=== PATIENT | female | born 1965 | race Caucasian/White ===

== ENCOUNTER 2021-11-16 17:32 | Inpatient (IN) ==
[2021-11-16] MEDS ORDERED: LORazepam 2 MG/1 ML VIAL IV STA ×2 (17:59→23:13)
[2021-11-16] MEDS ORDERED: SODIUM CHLORIDE 0.9% 1000ML 1,000 ML IV ONE (17:59)
--- NOTE | 2021-11-16 18:06 | Emergency Department Note ---
Impression & Plan Seizure, Hypertension, Encephalopathy acute, Hypertensive emergency ED Provider Note Name: NAVEED GALO Age: 56 Sex: F Arrives Via: Ambulance Informant: Patient (poor historian), , EMS ED Provider: Rm Cunningham MD Chief Complaint: Seizure Impression: As per impressions above Medical Decision Making: Pleasant 56-year-old female who just moved to the area with her from [place]. She has a known history of CAD status post stenting, type 2 diabetes, hypertension and a long history of epilepsy though no significant seizures in several years. She is on Onfi and Lamictal as apparently per her she is allergic to pretty much every other seizure med. She and her have been sitting outside on the front porch for most of the day when she had recurrent seizures this afternoon. She has had at least 3 full tonic-clonic seizures lasting about a minute and well over an hour in between each where she continues to be postictal. She arrives to the ER encephalopathic in a postictal leg. She is redirectable but forgetful and not answering questions appropriately. She does not appear meningitic. She is afebrile though was quite hypertensive and tachycardic. She was given 2 mg IV Ativan as felt this was not an aller gy of hers and she had significant improvement in her mental status. She was given further IV fluids. She continues to have some confusion and is not quite at her baseline as per . She is still quite hypertensive thus after watching effect of Ativan she was given labetalol 10 mg x 2 with improvement in her blood pressure. While her mental status is clearly better I do not feel she is quite at the point where she is safe for discharge with monitoring her further in the hospital is indicated, especially given she has no outpatient follow-up at this time. I discussed the case with the hospitalist who will further evaluate and manage the patient. Prior Medical Record and Triage/Nursing Notes reviewed by Me Additional history obtained from Differentials:Infection, hypoglycemia, electrolyte abnormalities, overdose, toxicologic, cardiac sources, intracerebral event, neurologic, trauma, as well as other pathologies. Vital Signs: reviewed and remarkable for hypertension, tachycardia Interventions: Ativan 2 mg IV, normal saline bolus 1 L IV, labetalol 10 mg IV x2 Labs:Reviewed and remarkable for mild hyperglycemia Imaging:CT of head as per radiology no acute findings EKG:Per My Interpretation: Indication AMS: Sinus tachycardia at 115 bpm with a QTC of 470. Nonspecific interventricular block noted with enlarged P waves. There is no previous EKG for evaluation Cardiac/Tele Monitoring: Cardiac Monitoring: An Order was placed for continuous cardiac monitoring. The monitor shows a rate of 80 with a normal sinus rhythm. Consults:Dr Addy WILL Hospitalist Plan: Disposition:Hospitalization. Condition: Good History of Present Illness:56-year-old female arrives for evaluation of seizures. Patient is altered and the story is from her . Patient with a long history of seizures since the age of 2-1/2 following prolonged febrile seizure. Her notes that she had not had a seizure in the last 6 years due to being on Lamictal and Omvi. Patient and recently moved to the area from [place] about 5 days ago. They were out sitting on her porch in the sun around 1 PM when she had a seizure. Initial seizure was a few minutes followed by a prolonged postictal period which resulted in another seizure at 2 PM. notes this was about 2 minutes and violent tonic- clonic in nature. He notes she continued to be altered until about 4:00 when she had another seizure. Due to persistent altered mental status and not coming back to her called 911. She had no medications prior to arrival. denies any alcohol or drug use. He denies any recent head injuries I did have a fall on her left knee a few days ago without any major injury. Not feel she missed any doses of her medications. She has not been complaining of a headache, chest pain, shortness of breath, fevers, chills, eating issues, leg swelling, urinary or bowel symptoms or any other symptoms. ROS: Unable to obtain due to altered mental status Past Medical History:Seizures, [place], hypertension, dyslipidemia, diabetes Past Surgical History:Gallbladder and cardiac stents Family History:No family history of seizures Social History:Lives with , moved from [place], no history of smoking Home Medications:Lamictal, Omvi, statin, blood pressure medicine, metformin Allergies:"Most seizure medications" as per Vitals:Blood Pressure: 216/95, Pulse 115, RR 22, T 37.2C, O2 93% on RA Physical Exam: GENERAL: Patient is encephalopathic/post ictal appearing and in no distress. Dehydrated and dry appearing EYES: No scleral icterus, unremarkable pupils. ENT: Mucous membranes dry, no nasal congestion. NECK: No masses appreciated, nomeningismus, trachea is midline. RESPIRATORY: No dyspnea. Clear to auscultation and equal bilaterally. No wheeze, no rhonchi. CARDIOVASCULAR: Tachy.No murmurs, rubs, gallops appreciated. GASTROINTESTINAL: Abdomen soft, non-tender, no peritonitis.Bowel sounds positive.No masses appreciated. BACK: No midline tenderness, no CVA tenderness EXTREMITIES: Normal motion all extremities, no cyanosis, no edema. NEUROLOGIC: Post ictal appearing, periodically focusing on objects with eyes before roving away, weakly moving all extremities, no focal CN deficits appreciated. SKIN: No rash, no jaundice, no diaphoresis. GCS: 14 ED Course: Times/Reassessments: Patient with improvement in her mental status though not quite back to her normal baseline. Hypertension gradually improving with rounds of labetalol. Critical Care: I have personally spent 35 minutes of critical care time in the direct ma nagement of this patient. Hypertensive emergency in setting of AMS with 2 rounds IV labetalol to get under control. This was a life/limb threatening event. This 35 minutes is in excess of all separately billable procedures. Rm Cunningham MD Past Med/Surg History Medical History (Updated 11/17/21 @ 17:04 by Rm Cunningham MD) CAD (coronary artery disease) s/p OK in 1998 with stent to LAD Diabetes Hypertension Seizure Surgical History (Updated 11/16/21 @ 22:53 by Lexi Daly DO) History of cholecystectomy Family History (Updated 11/16/21 @ 22:53 by Lexi Daly DO) Other Atrial fibrillation Social History (Updated 11/16/21 @ 22:54 by Lexi Daly DO) Smoking Status: Never smoker Hx Alcohol Use: No Hx Substance Use: No Preferred Language: British Communication Ability: Effective Telegraph Service Clerk Required: No Beliefs That Will Affect Care: None marital status: Current Living Situation: Spouse current occupational status: retired Feels Safe at Home: Yes Safety Concerns: Feels Safe At This Time Assistive Devices: None Allergies Allergies Allergy/AdvReac Type Severity Reaction Status Date / Time ANTISEIZURE MEDICATIONS AdvReac Severe CAUSES Uncoded 11/16/21 19:25 SEIZURES Home Meds Home Medications Medication Instructions Recorded Confirmed Unknown Low Dose Arb 1 tab PO DAILY 11/16/21 11/16/21 Unknown Statin 1 tab PO HS 11/16/21 11/16/21 ascorbic acid (vitamin C) 500 mg 500 mg PO DAILY 11/16/21 11/16/21 tablet (Vitamin C) calcium carbonate 600 mg calcium 600 mg PO DAILY 11/16/21 11/16/21 (1,500 mg) tablet (Calcium) cholecalciferol (vitamin D3) 25 25 mcg PO DAILY 11/16/21 11/16/21 mcg (1,000 unit) capsule (Vitamin D3) clobazam 10 mg tablet (Onfi) 10 mg PO HS 11/16/21 11/16/21 lamotrigine 200 mg tablet 300 mg PO BID 11/16/21 11/16/21 (Lamictal) lorazepam 1 mg tablet (Ativan) 1 mg PO DIRECTED PRN 11/16/21 11/16/21 magnesium oxide 400 mg PO DAILY 11/16/21 11/16/21 metformin 1,000 mg tablet 1,000 mg PO BID 11/16/21 11/16/21 metoprolol succinate 50 mg 50 mg PO DAILY 11/16/21 11/16/21 tablet,extended release 24 hr montelukast 10 mg tablet 10 mg PO HS 11/16/21 11/16/21 (Singulair) pyridoxine (vitamin B6) 100 mg 100 mg PO DAILY 11/16/21 11/16/21 tablet (Vitamin B-6) vitamin B complex 1 tab PO DAILY 11/16/21 11/16/21 Results & Data (ED) Vital Signs Vital Signs - 24 hr 11/16/21 17:48 11/16/21 17:49 11/16/21 17:50 Temperature 37.2 C Temperature Source Axillary Pulse Rate 116 H 116 H 116 H Pulse Rate [Right Finger] 115 H Pulse Rate from SpO2 Sensor 116 H 116 H Pulse Rhythm Regular Pulse Strength Normal Pulse Strength [Right Finger] Normal Respiratory Rate 22 21 26 H Respiratory Effort / Characteristics Non-Labored Spontaneous Respiratory Depth Normal Respiratory Pattern Regular Blood Pressure 216/95 H Blood Pressure [Right Arm] 216/95 H Blood Pressure Mean 135 Blood Pressure Mean [Right Arm] 135 Blood Pressure Position Lying Blood Pressure Position [Right Arm] Lying Pulse Oximetry 93 94 95 Oxygen Delivery Method Room Air Sepsis Recent Fever Within 48 Hours No Sepsis New/Unexplained Change in Mental Status No Sepsis Action Taken by Nursing Physician Notified 11/16/21 18:00 11/16/21 18:10 11/16/21 18:20 Temperature Temperature Source Pulse Rate 116 H 111 H 103 H Pulse Rate [Right Finger] Pulse Rate from SpO2 Sensor 115 H 111 H 103 H Pulse Rhythm Pulse Strength Pulse Strength [Right Finger] Respiratory Rate 24 25 H 15 Respiratory Effort / Characteristics Respiratory Depth Respiratory Pattern Blood Pressure Blood Pressure [Right Arm] Blood Pressure Mean Blood Pressure Mean [Right Arm] Blood Pressure Position Blood Pressure Position [Right Arm] Pulse Oximetry 94 93 94 Oxygen Delivery Method Sepsis Recent Fever Within 48 Hours Sepsis New/Unexplained Change in Mental Status Sepsis Action Taken by Nursing 11/16/21 18:30 11/16/21 18:40 11/16/21 18:58 Temperature Temperature Source Pulse Rate 103 H 100 H 106 H Pulse Rate [Right Finger] Pulse Rate from SpO2 Sensor 103 H 100 H 104 H Pulse Rhythm Pulse Strength Pulse Strength [Right Finger] Respiratory Rate 21 20 22 Respiratory Effort / Characteristics Respiratory Depth Respiratory Pattern Blood Pressure Blood Pressure [Right Arm] Blood Pressure Mean Blood Pressure Mean [Right Arm] Blood Pressure Position Blood Pressure Position [Right Arm] Pulse Oximetry 94 94 96 Oxygen Delivery Method Sepsis Recent Fever Within 48 Hours Sepsis New/Unexplained Change in Mental Status Sepsis Action Taken by Nursing 11/16/21 19:00 11/16/21 19:02 11/16/21 19:10 Temperature Temperature Source Pulse Rate 105 H 106 H 108 H Pulse Rate [Right Finger] Pulse Rate from SpO2 Sensor 105 H 107 H 108 H Pulse Rhythm Pulse Strength Pulse Strength [Right Finger] Respiratory Rate 24 26 H 14 Respiratory Effort / Characteristics Respiratory Depth Respiratory Pattern Blood Pressure 202/101 H Blood Pressure [Right Arm] Blood Pressure Mean 134 Blood Pressure Mean [Right Arm] Blood Pressure Position Blood Pressure Position [Right Arm] Pulse Oximetry 96 97 96 Oxygen Delivery Method Sepsis Recent Fever Within 48 Hours Sepsis New/Unexplained Change in Mental Status Sepsis Action Taken by Nursing 11/16/21 19:12 11/16/21 19:30 11/16/21 20:00 Temperature Temperature Source Pulse Rate 108 H 112 H 96 H Pulse Rate [Right Finger] Pulse Rate from SpO2 Sensor 105 H 112 H 96 H Pulse Rhythm Pulse Strength Pulse Strength [Right Finger] Respiratory Rate 17 17 20 Respiratory Effort / Characteristics Respiratory Depth Respiratory Pattern Blood Pressure 218/106 H Blood Pressure [Right Arm] Blood Pressure Mean 143 Blood Pressure Mean [Right Arm] Blood Pressure Position Blood Pressure Position [Right Arm] Pulse Oximetry 86 L 93 92 Oxygen Delivery Method Sepsis Recent Fever Within 48 Hours Sepsis New/Unexplained Change in Mental Status Sepsis Action Taken by Nursing 11/16/21 20:06 11/16/21 20:30 11/16/21 20:40 Temperature Temperature Source Pulse Rate 98 H 101 H 100 H Pulse Rate [Right Finger] Pulse Rate from SpO2 Sensor 97 H 102 H 100 H Pulse Rhythm Pulse Strength Pulse Strength [Right Finger] Respiratory Rate 21 19 15 Respiratory Effort / Characteristics Respiratory Depth Respiratory Pattern Blood Pressure 133/111 H Blood Pressure [Right Arm] Blood Pressure Mean 118 Blood Pressure Mean [Right Arm] Blood Pressure Position Blood Pressure Position [Right Arm] Pulse Oximetry 91 96 96 Oxygen Delivery Method Sepsis Recent Fever Within 48 Hours Sepsis New/Unexplained Change in Mental Status Sepsis Action Taken by Nursing 11/16/21 20:50 11/16/21 21:00 Temperature Temperature Source Pulse Rate 99 H Pulse Rate [Right Finger] Pulse Rate from SpO2 Sensor 100 H 101 H Pulse Rhythm Pulse Strength Pulse Strength [Right Finger] Respiratory Rate 18 Respiratory Effort / Characteristics Respiratory Depth Respiratory Pattern Blood Pressure Blood Pressure [Right Arm] Blood Pressure Mean Blood Pressure Mean [Right Arm] Blood Pressure Position Blood Pressure Position [Right Arm] Pulse Oximetry 96 94 Oxygen Delivery Method Sepsis Recent Fever Within 48 Hours Sepsis New/Unexplained Change in Mental Status Sepsis Action Taken by Nursing Laboratory Data Result diagrams: 11/17/21 01:50 11/17/21 01:50 Lab Results 11/16/21 11/16/21 11/16/21 Range/Units 17:54 17:54 17:54 WBC 10.74 (4.8-10.8) K/uL RBC 5.09 (4.2-5.4) M/uL Hgb 15.1 (12.0-16.0) g/dL Hct 45.2 (37-47) % MCV 88.8 (80-100) fL MCH 29.7 (25-34) pg MCHC 33.4 (32-36) g/dL RDW Std Deviation 42.8 (36.4-46.3) fL RDW Coeff of [place] 13.1 (11.5-14.5) % Plt Count 273 (130-400) K/uL MPV 9.9 (7.4-10.4) fL Immature Gran % (Auto) 0.6 % Neut % (Auto) 86.3 % Lymph % (Auto) 9.5 % [place] % (Auto) 3.3 % Eos % (Auto) 0.1 % Baso % (Auto) 0.2 % Neut # (Auto) 9.28 H (1.4-6.5) K/uL Lymph # (Auto) 1.02 L (1.2-3.4) K/uL [place] # (Auto) 0.35 (0.11-0.59) K/uL Eos # (Auto) 0.01 (0-0.5) K/uL Baso # (Auto) 0.02 (0-0.2) K/uL Immature Gran # (Auto) 0.06 H (0.00-0.02) K/uL Sodium 137 (136-145) mmol/L Potassium 4.2 (3.5-5.1) mmol/L Chloride 103 (98-107) mmol/L Carbon Dioxide 23 (21-32) mmol/L Anion Gap 11 (3-11) BUN 17 (6-23) mg/dl Creatinine 0.79 (0.6-1.2) mg/dl Est Cr Clr Drug Dosing 95.8 ml/min Est GFR ( Amer) 95.6 ml/min Est GFR (Non-Af Amer) 82.5 ml/min BUN/Creatinine Ratio 21.5 H (10-20) Glucose 281 H (70-99(Fasting)) mg/dl Calcium 9.5 (8.5-10.1) mg/dl Magnesium 1.7 (1.7-2.4) mg/dl Total Bilirubin 0.5 (0.2-1.0) mg/dl Direct Bilirubin 0.1 (0-0.2) mg/dl AST 27 (13-39) U/L ALT 31 (7-52) U/L Alkaline Phosphatase 67 (34-104) U/L Total Creatine Kinase 186 (26-192) U/L Troponin I High Sens 12.3 (0-14) pg/ml Total Protein 7.8 (6.0-8.3) gm/dl Albumin 4.6 (3.4-5.0) gm/dl TSH 2.447 (0.300-4.500) uIu/ml SARS-CoV-2, RNA, NAAT (NEGATIVE) 11/16/21 Range/Units 18:03 WBC (4.8-10.8) K/uL RBC (4.2-5.4) M/uL Hgb (12.0-16.0) g/dL Hct (37-47) % MCV (80-100) fL MCH (25-34) pg MCHC (32-36) g/dL RDW Std Deviation (36.4-46.3) fL RDW Coeff of [place] (11.5-14.5) % Plt Count (130-400) K/uL MPV (7.4-10.4) fL Immature Gran % (Auto) % Neut % (Auto) % Lymph % (Auto) % [place] % (Auto) % Eos % (Auto) % Baso % (Auto) % Neut # (Auto) (1.4-6.5) K/uL Lymph # (Auto) (1.2-3.4) K/uL [place] # (Auto) (0.11-0.59) K/uL Eos # (Auto) (0-0.5) K/uL Baso # (Auto) (0-0.2) K/uL Immature Gran # (Auto) (0.00-0.02) K/uL Sodium (136-145) mmol/L Potassium (3.5-5.1) mmol/L Chloride (98-107) mmol/L Carbon Dioxide (21-32) mmol/L Anion Gap (3-11) BUN (6-23) mg/dl Creatinine (0.6-1.2) mg/dl Est Cr Clr Drug Dosing ml/min Est GFR ( Amer) ml/min Est GFR (Non-Af Amer) ml/min BUN/Creatinine Ratio (10-20) Glucose (70-99(Fasting)) mg/dl Calcium (8.5-10.1) mg/dl Magnesium (1.7-2.4) mg/dl Total Bilirubin (0.2-1.0) mg/dl Direct Bilirubin (0-0.2) mg/dl AST (13-39) U/L ALT (7-52) U/L Alkaline Phosphatase (34-104) U/L Total Creatine Kinase (26-192) U/L Troponin I High Sens (0-14) pg/ml Total Protein (6.0-8.3) gm/dl Albumin (3.4-5.0) gm/dl TSH (0.300-4.500) uIu/ml SARS-CoV-2, RNA, NAAT NEGATIVE (NEGATIVE) Administered Medications Insulin Aspart (Insulin Aspart Per Unit) 0 units SC Q6 EDUARDO Stop: 12/17/21 00:06 Last Admin: 11/17/21 12:21 Dose: 2 units Documented by: [id number] Cosigned by: [id number] Admin: 11/17/21 06:04 Dose: 3 units Documented by: [id number] Cosigned by: [id number] Admin: 11/17/21 01:45 Dose: 3 units Documented by: [id number] Cosigned by: [id number] Insulin Glargine (Insulin Glargine Solostar 100 Units/Ml 3 Ml Pen) 7 units SC BID [facility] Stop: 12/17/21 00:06 Last Admin: 11/17/21 08:58 Dose: 7 units Documented by: [id number] Cosigned by: [id number] Admin: 11/17/21 01:37 Dose: 7 units Documented by: [id number] Cosigned by: [id number] Lamotrigine (Lamotrigine 100 Mg Tab) 300 mg PO BID [facility] Stop: 12/17/21 08:59 Last Admin: 11/17/21 08:28 Dose: 300 mg Documented by: [id number] Metoprolol Succinate (Metoprolol Succ 50mg Ext Rel Tab) 50 mg PO DAILY EDUARDO Stop: 12/17/21 08:59 Last Admin: 11/17/21 08:28 Dose: 50 mg Documented by: [id number] Miscellaneous (Onfi~Order Awaiting Action) 1 ea N/A QS [facility] Stop: 12/17/21 00:29 Last Admin: 11/17/21 09:01 Dose: Not Given Documented by: [id number] Admin: 11/17/21 03:09 Dose: Not Given Documented by: [id number] Montelukast Sodium (Montelukast Sodium 10 Mg Tablet) 10 mg PO HS [facility] Stop: 12/17/21 00:06 Last Admin: 11/17/21 01:58 Dose: 10 mg Documented by: [id number] Discontinued Medications Sodium Chloride (Nss 1000ml) 1,000 mls @ 999 mls/hr IV .Q1H1M ONE Stop: 11/16/21 18:59 Last Infusion: 11/16/21 19:15 Dose: 0 mls/hr Documented by: [id number] Admin: 11/16/21 18:06 Dose: 999 mls/hr Documented by: [id number] Lactated Ringer's (Lr) 1,000 mls @ 125 mls/hr IV .Q8H EDUARDO Stop: 11/17/21 08:06 Last Infusion: 11/17/21 09:46 Dose: 0 mls/hr Documented by: [id number] Admin: 11/17/21 01:58 Dose: 125 mls/hr Documented by: [id number] Labetalol HCl (Labetalol Hcl Iv 5 Mg/Ml 20ml) 10 mg IV NOW STA Stop: 11/16/21 19:15 Last Admin: 11/16/21 19:38 Dose: 10 mg Documented by: [id number] Cosigned by: [id number] Labetalol HCl (Labetalol Hcl Iv 5 Mg/Ml 20ml) 10 mg IV NOW STA Stop: 11/16/21 20:13 Last Admin: 11/17/21 02:11 Dose: Not Given Documented by: [id number] Lamotrigine (Lamotrigine 100 Mg Tab) 300 mg PO NOW STA Stop: 11/16/21 22:51 Last Admin: 11/16/21 23:26 Dose: 300 mg Documented by: [id number] Lorazepam (Lorazepam 2 Mg/1 Ml Vial) 2 mg IV NOW STA; Protocol Stop: 11/16/21 18:00 Last Admin: 11/16/21 18:06 Dose: 2 mg Documented by: [id number] Lorazepam (Lorazepam 2 Mg/1 Ml Vial) 1 mg IV NOW STA; Protocol Stop: 11/16/21 23:14 Last Admin: 11/16/21 23:27 Dose: 1 mg Documented by: [id number] Discharge Plan Visit Data Chief Complaint: Seizure ED Provider: Rm Cunningham Discharge Problem: Seizure, Hypertension, Encephalopathy acute, Hypertensive emergency
[2021-11-16 18:12] LABS: Basophils # (auto) 0.02 K/uL (0-0.2); Basophils % (auto) 0.2 %; Eosinophils # (auto) 0.01 K/uL (0-0.5); Eosinophils % (auto) 0.1 %; Hematocrit (blood only) 45.2 % (37-47); Hemoglobin 15.1 g/dL (12.0-16.0); Immature Granulocytes # (auto) 0.06 K/uL (0.00-0.02); Immature Granulocytes % (auto) 0.6 %; Lymphocytes # (auto) 1.02 K/uL (1.2-3.4); Lymphocytes % (auto) 9.5 %; Mean Corpuscular Hemoglobin 29.7 pg (25-34); Mean Corpuscular Hgb Conc 33.4 g/dL (32-36); Mean Corpuscular Volume 88.8 fL (80-100); Mean Platelet Volume 9.9 fL (7.4-10.4); Monocytes # (auto) 0.35 K/uL (0.11-0.59); Monocytes % (auto) 3.3 %; Neutrophils # (auto) 9.28 K/uL (1.4-6.5); Neutrophils % (auto) 86.3 %; Platelet Count 273 K/uL (130-400); RDW Coefficient of Variation 13.1 % (11.5-14.5); RDW Standard Deviation 42.8 fL (36.4-46.3); Red Blood Count 5.09 M/uL (4.2-5.4); White Blood Count 10.74 K/uL (4.8-10.8)
--- NOTE | 2021-11-16 18:28 | XRay Report ---
XR chest 1V portable CLINICAL HISTORY: Altered mental status, persistent seizure COMPARISON STUDY: No previous studies for comparison. FINDINGS: Lung volumes are diminished. No pneumothorax or pleural effusion is noted. There is no cons olidation. No evidence for pulmonary edema. Prominence of the vasculature is likely due to a hypovent ilatory study. Cardiac size is within normal limits. IMPRESSION: No acute cardiopulmonary findings. Low lung volumes, likely reflecting a hypoventilatory study. ACT 112: Negative or not required by law. Electronically signed by: Roman Hunt M.D. 11/16/2021 6:27 PM
[2021-11-16 18:46] LABS: Albumin Level 4.6 gm/dl (3.4-5.0); BUN Creatinine Ratio 21.5 (10-20); Bilirubin Direct 0.1 mg/dl (0-0.2); Bilirubin,Total 0.5 mg/dl (0.2-1.0); Calcium 9.5 mg/dl (8.5-10.1); Creatinine Clr Calc Pharmacy 95.8 ml/min; Est GFR (African American) 95.6 ml/min; Est GFR (Non-African American) 82.5 ml/min; Magnesium 1.7 mg/dl (1.7-2.4); Potassium 4.2 mmol/L (3.5-5.1); Total Protein 7.8 gm/dl (6.0-8.3)
[2021-11-16 18:48] LABS: Troponin I High Sensitivity 12.3 pg/ml (0-14)
--- NOTE | 2021-11-16 19:05 | CT Scan Report ---
CT OF THE HEAD WITHOUT CONTRAST CLINICAL HISTORY: seizure, ams persistent COMPARISON STUDY: No previous studies for comparison. CT DOSE: 884.08 mGy.cm TECHNIQUE: Helical axial images of the head were obtained without IV contrast. Automated exposure con trol was utilized for the study. A dose lowering technique was utilized adhering to the principles o f ALARA. FINDINGS: No acute intracranial hemorrhage, midline shift or mass effect is present. Ventricular syst em is unremarkable. Basal cisterns are patent. Incidental note is made of a probable daryn cisterna ma gna. There are no findings to suggest acute dural sinus thrombosis or acute territorial infarct. No a cute calvarial fracture is present. There are postoperative findings within the sinuses. Small amount of secretions within the left sphenoid sinus are present. This mild mucosal thickening of the ethmoi d and left maxillary sinuses. Mastoid air cells are clear. IMPRESSION: No acute intracranial findings. ACT 112: Negative or not required by law. Electronically signed by: Roman Hunt M.D. 11/16/2021 7:03 PM
[2021-11-16] MEDS ORDERED: LABETALOL HCL IV 5 MG/ML 20ML IV STA ×2 (19:14→20:12)
--- NOTE | 2021-11-16 21:07 | History & Physical Report ---
Date of Service November 16, 2021 Assessment & Plan (1) Seizure: Plan: 56yo female with longstanding history of epilepsy (absence seizures as well as tonic-clonic seizures), reportedly well controlled on Lamictal 300mg BID and Clobazam 10mg HS with last reported tonic-clonic seizure 6 years ago presents from home following witnessed tonic-clonic seizures. Patient reports medication compliance. She has had some increased stress and has been more tired than usual given their recent move. Markedly elevated blood pressure on arrival - ?PRES as cause of worsening seizures. Does not appear to be infectious cause at this time. -Admit to PCU -Maintain seizure precautions -Ativan 2mg IV as needed for seizure activity -Continue Lamictal and Clobazam (patient may take own medication) -Check MRI brain -Check EEG -Request records from PCP and Epileptologist -Neurology consultation appreciated (2) CAD (coronary artery disease): Plan: Patient denies chest pain. HSTroponin = 12.3 -Obtain home records (need to clarify home statin and home ARB) -Continue metoprolol -Patient does not have ASA on home list - unclear why (3) Hypertension: Plan: With elevated blood pressure on arrival -Continue Metoprolol -Continue to montior (4) Diabetes: Plan: Blood sugar elevated -Check A1C -Lantus/ISS, goal blood sugar 100 - 140 History of Present Illness Chief Complaint: Seizure x 3 Primary Care Provider: NO PCP Jami Magallon is a 56yo female with history of DM, HTN and longstanding history of seizure disorder presenting from home with witnessed seizure x 3. Patient is from [place]. She and her recently bought a home in [place] and are relocating here - they have been in [place] x 6 days. Patient was sitting on the porch today with her when she developed a tonic-clonic seizure which lasted approximately 2.5 minutes. reports she was post-ictal, non-verbal and minimally responsive following this seizure. She had a second seizure around 14:00 which was shorter in duration but "more violent" than the first. Patient had a third seizure around 16:00. reports patient appeared cyanotic during the last seizure and seemed to be demonstrating decorticate posturing. called 911 following the third seizure. reports patient is disoriented and combative Patient was first diagnosed with epilepsy following an episode of heat stroke at age [age]. Her states that she has been on multiple medications in the past and has had reactions or worsening seizures on most of them. She is particularly intolerant to Keppra. She is presently on stable doses of Lamictal and Clobazam. reports that patient's last tonic-clonic seizure was in September 2015. She was following with an Epileptologist - Dr. Jamie Navas from [facility]. She also has frequent absence seizures at baseline - "dozens/day". reports and increased frequency and duration of absence seizures over the last several days. She does report compliance with her medications. Patient has had increased stress and fatigue over the last week due to the move. Otherwise, no acute changes. No drug or EtOH use. No report of tick bites or mosquito bites. Patient has received her Covid-19 vaccinations as well as booster with her second booster being 10 days ago. Upon arrival to the ER patient hypertensive at 216/95 ER Course: Labetalol 10mg IV, NSS x 1L, Ativan 2mg IV Allergies Allergy/AdvReac Type Severity Reaction Status Date / Time ANTISEIZURE MEDICATIONS AdvReac Severe CAUSES Uncoded 11/16/21 19:25 SEIZURES Home Medications Medication Instructions Recorded Confirmed Type Unknown Low Dose Arb 1 tab PO DAILY 11/16/21 11/16/21 History Unknown Statin 1 tab PO HS 11/16/21 11/16/21 History ascorbic acid (vitamin C) 500 mg 500 mg PO DAILY 11/16/21 11/16/21 History tablet (Vitamin C) calcium carbonate 600 mg calcium 600 mg PO DAILY 11/16/21 11/16/21 History (1,500 mg) tablet (Calcium) cholecalciferol (vitamin D3) 25 25 mcg PO DAILY 11/16/21 11/16/21 History mcg (1,000 unit) capsule (Vitamin D3) clobazam 10 mg tablet (Onfi) 10 mg PO HS 11/16/21 11/16/21 History lamotrigine 200 mg tablet 300 mg PO BID 11/16/21 11/16/21 History (Lamictal) lorazepam 1 mg tablet (Ativan) 1 mg PO DIRECTED PRN 11/16/21 11/16/21 History magnesium oxide 400 mg PO DAILY 11/16/21 11/16/21 History metformin 1,000 mg tablet 1,000 mg PO BID 11/16/21 11/16/21 History metoprolol succinate 50 mg 50 mg PO DAILY 11/16/21 11/16/21 History tablet,extended release 24 hr montelukast 10 mg tablet 10 mg PO HS 11/16/21 11/16/21 History (Singulair) pyridoxine (vitamin B6) 100 mg 100 mg PO DAILY 11/16/21 11/16/21 History tablet (Vitamin B-6) vitamin B complex 1 tab PO DAILY 11/16/21 11/16/21 History Past Med/Surg History Medical History (Updated 11/16/21 @ 22:52 by Lexi Daly DO) CAD (coronary artery disease) s/p [place] in 1998 with stent to LAD Diabetes Hypertension Seizure Surgical History (Updated 11/16/21 @ 22:53 by Lexi Daly DO) History of cholecystectomy Family History (Updated 11/16/21 @ 22:53 by Lexi Daly DO) Other Atrial fibrillation Social History (Updated 11/16/21 @ 22:54 by Lexi Daly DO) Smoking Status: Never smoker Hx Alcohol Use: No Hx Substance Use: No Preferred Language: Greek marital status: Current Living Situation: Spouse current occupational status: retired Feels Safe at Home: Yes Review of Systems Review of Systems: All systems reviewed & are unremarkable except as noted in HPI & below difficult to obtain. Patient denies acute pain or complaints. Physical Exam Physical Exam: General: patient somnolent, arousable, answers some questions - states name Skin: warm, dry, intact, sunburn present on anterior thighs bilaterally HEENT: NC/AT, PERRL, EOMI, anicteric sclera, conjunctiva without injection, external ear normal to inspection and nontender, nares patent, slightly dry mucus membranes, dentition intact, no oropharyngeal lesions, neck supple, trachea midline, no LAD, no thyromegaly, no JVD Heart: +S1/S2, regular, tachycardic, no m/r/g Lungs: equal air entry bilaterally, no rales/rhonchi/wheezes Abd: +BS, soft, NT/ND, no masses/organomegaly/ascites Ext: warm, 2+ pulses in UE/LE bilaterally, no clubbing/cyanosis or edema Neuro: somnolent, arousable, picking at O2 monitor and IV site, answers some questions appropriately, moving all extremities with equal strength, following commands Results & Data Results & Data ([facility]) Vital Signs (Past 12 Hours) Vital Signs Temp Pulse Pulse Resp BP BP Pulse Ox 11/16/21 21:00 94 11/16/21 20:50 99 H 18 96 11/16/21 20:40 100 H 15 96 11/16/21 20:30 101 H 19 96 11/16/21 20:06 98 H 21 133/111 H 91 11/16/21 20:00 96 H 20 92 11/16/21 19:30 112 H 17 93 11/16/21 19:12 108 H 17 218/106 H 86 L 11/16/21 19:10 108 H 14 96 11/16/21 19:02 106 H 26 H 202/101 H 97 11/16/21 19:00 105 H 24 96 11/16/21 18:58 106 H 22 96 11/16/21 18:40 100 H 20 94 11/16/21 18:30 103 H 21 94 11/16/21 18:20 103 H 15 94 11/16/21 18:10 111 H 25 H 93 11/16/21 18:00 116 H 24 94 11/16/21 17:50 116 H 26 H 95 11/16/21 17:49 116 H 21 94 11/16/21 17:48 37.2 C 116 H 115 H 22 216/95 H 216/95 H 93 Laboratory Results Laboratory Results WBC 10.74 K/uL (4.8-10.8) 11/16/21 17:54 RBC 5.09 M/uL (4.2-5.4) 11/16/21 17:54 Hgb 15.1 g/dL (12.0-16.0) 11/16/21 17:54 Hct 45.2 % (37-47) 11/16/21 17:54 MCV 88.8 fL (80-100) 11/16/21 17:54 MCH 29.7 pg (25-34) 11/16/21 17:54 MCHC 33.4 g/dL (32-36) 11/16/21 17:54 RDW Std Deviation 42.8 fL (36.4-46.3) 11/16/21 17:54 RDW Coeff of Antwan 13.1 % (11.5-14.5) 11/16/21 17:54 Plt Count 273 K/uL (130-400) 11/16/21 17:54 MPV 9.9 fL (7.4-10.4) 11/16/21 17:54 Immature Gran % (Auto) 0.6 % 11/16/21 17:54 Neut % (Auto) 86.3 % 11/16/21 17:54 Lymph % (Auto) 9.5 % 11/16/21 17:54 Webster % (Auto) 3.3 % 11/16/21 17:54 Eos % (Auto) 0.1 % 11/16/21 17:54 Baso % (Auto) 0.2 % 11/16/21 17:54 Neut # (Auto) 9.28 K/uL (1.4-6.5) H 11/16/21 17:54 Lymph # (Auto) 1.02 K/uL (1.2-3.4) L 11/16/21 17:54 Webster # (Auto) 0.35 K/uL (0.11-0.59) 11/16/21 17:54 Eos # (Auto) 0.01 K/uL (0-0.5) 11/16/21 17:54 Baso # (Auto) 0.02 K/uL (0-0.2) 11/16/21 17:54 Immature Gran # (Auto) 0.06 K/uL (0.00-0.02) H 11/16/21 17:54 Sodium 137 mmol/L (136-145) 11/16/21 17:54 Potassium 4.2 mmol/L (3.5-5.1) 11/16/21 17:54 Chloride 103 mmol/L (98-107) 11/16/21 17:54 Carbon Dioxide 23 mmol/L (21-32) 11/16/21 17:54 Anion Gap 11 (3-11) 11/16/21 17:54 BUN 17 mg/dl (6-23) 11/16/21 17:54 Creatinine 0.79 mg/dl (0.6-1.2) 11/16/21 17:54 Est Cr Clr Drug Dosing 95.8 ml/min 11/16/21 17:54 Est GFR ( Amer) 95.6 ml/min 11/16/21 17:54 Est GFR (Non-Af Amer) 82.5 ml/min 11/16/21 17:54 BUN/Creatinine Ratio 21.5 (10-20) H 11/16/21 17:54 Glucose 281 mg/dl (70-99(Fasting)) H 11/16/21 17:54 Calcium 9.5 mg/dl (8.5-10.1) 11/16/21 17:54 Magnesium 1.7 mg/dl (1.7-2.4) 11/16/21 17:54 Total Bilirubin 0.5 mg/dl (0.2-1.0) 11/16/21 17:54 Direct Bilirubin 0.1 mg/dl (0-0.2) 11/16/21 17:54 AST 27 U/L (13-39) 11/16/21 17:54 ALT 31 U/L (7-52) 11/16/21 17:54 Alkaline Phosphatase 67 U/L (34-104) 11/16/21 17:54 Total Creatine Kinase 186 U/L (26-192) 11/16/21 17:54 Troponin I High Sens 12.3 pg/ml (0-14) 11/16/21 17:54 Total Protein 7.8 gm/dl (6.0-8.3) 11/16/21 17:54 Albumin 4.6 gm/dl (3.4-5.0) 11/16/21 17:54 TSH 2.447 uIu/ml (0.300-4.500) 11/16/21 17:54 SARS-CoV-2, RNA, NAAT NEGATIVE (NEGATIVE) 11/16/21 18:[address] 11/16/21 17:59 CT OF THE HEAD WITHOUT CONTRAST CLINICAL HISTORY: seizure, ams persistent COMPARISON STUDY: No previous studies for comparison. CT DOSE: 884.08 mGy.cm TECHNIQUE: Helical axial images of the head were obtained without IV contrast. Automated exposure control was utilized for the study. A dose lowering technique was utilized adhering to the principles of ALARA. FINDINGS: No acute intracranial hemorrhage, midline shift or mass effect is present. Ventricular system is unremarkable. Basal cisterns are patent. 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 There are no findings to suggest acute dural sinus thrombosis or acute territorial infarct. No acute calvarial fracture is present. There are postoperative findings within the sinuses. Small amount of secretions within the left sphenoid sinus are present. This mild mucosal thickening of the ethmoid and left maxillary sinuses. Mastoid air cells are clear. IMPRESSION: No acute intracranial findings. ACT 112: Negative or not required by law. Electronically signed by: Roman Hunt M.D. 11/16/2021 7:03 PM Chest X-Ray 11/16/21 18:00 XR chest 1V portable CLINICAL HISTORY: Altered mental status, persistent seizure COMPARISON STUDY: No previous studies for comparison. FINDINGS: Lung volumes are diminished. No pneumothorax or pleural effusion is noted. There is no consolidation. No evidence for pulmonary edema. Prominence of the vasculature is likely due to a hypoventilatory study. Cardiac size is within normal limits. IMPRESSION: No acute cardiopulmonary findings. Low lung volumes, likely reflecting a hypoventilatory study. ACT 112: Negative or not required by law. Electronically signed by: Roman Hunt M.D. 11/16/2021 6:27 PM PG Care Time/CCT Total # of Minutes Spent Total Time Spent with Patient: Total time spent is greater than 50% in coordination of care (as documented) at patient's floor/unit and/or counseling patient: Coding Level of Care Code 38316 Initial Inpt Care Lvl 2 Diagnoses CAD (coronary artery disease) I25.10 Hypertension I10 Diabetes E11.9 Seizure R56.9
[2021-11-16] MEDS ORDERED: lamoTRIgine 100 MG TAB PO STA (22:50)
[2021-11-17] MEDS ORDERED: GLUCOSE 40% GEL 15 GM TUBE PO PRN (00:07)
[2021-11-17] MEDS ORDERED: LORazepam 2 MG/1 ML VIAL IV PRN (00:07)
[2021-11-17] MEDS ORDERED: LACTATED RINGER'S 1,000 ML IV SCH (00:07)
[2021-11-17] MEDS ORDERED: CARBOHYDRATES FOR HYPOGLYCEMIA PO PRN (00:07)
[2021-11-17] MEDS ORDERED: GLUCAGON FOR INJ 1 MG VIAL SQ PRN (00:07)
[2021-11-17] MEDS ORDERED: ACETAMINOPHEN 325 MG TAB PO PRN (00:07)
[2021-11-17] MEDS ORDERED: DEXTROSE 50% 50 ML SYRINGE IV PRN (00:07)
[2021-11-17] MEDS ORDERED: GLUCOSE 10 TABS/TUBE PO PRN (00:07)
[2021-11-17] MEDS: INSULIN GLARGINE SOLOSTAR 100 UNITS/ML 3 ML PEN SC SCH ×4 (01:37→22:34)
[2021-11-17] MEDS: INSULIN ASPART PER UNIT SC SCH ×4 (01:45→18:14)
[2021-11-17] MEDS: MONTELUKAST SODIUM 10 MG TABLET PO SCH ×2 (01:58→22:17)
[2021-11-17 02:07] LABS: Basophils # (auto) 0.02 K/uL (0-0.2); Basophils % (auto) 0.2 %; Eosinophils # (auto) 0.01 K/uL (0-0.5); Eosinophils % (auto) 0.1 %; Hemoglobin 14.4 g/dL (12.0-16.0); Immature Granulocytes # (auto) 0.04 K/uL (0.00-0.02); Immature Granulocytes % (auto) 0.4 %; Lymphocytes # (auto) 1.92 K/uL (1.2-3.4); Mean Corpuscular Hemoglobin 29.6 pg (25-34); Mean Corpuscular Hgb Conc 33.5 g/dL (32-36); Mean Corpuscular Volume 88.5 fL (80-100); Mean Platelet Volume 9.7 fL (7.4-10.4); Monocytes # (auto) 0.99 K/uL (0.11-0.59); Monocytes % (auto) 8.8 %; Neutrophils % (auto) 73.5 %; Platelet Count 275 K/uL (130-400); RDW Coefficient of Variation 13.2 % (11.5-14.5); Red Blood Count 4.86 M/uL (4.2-5.4); White Blood Count 11.28 K/uL (4.8-10.8)
[2021-11-17 02:24] LABS: BUN Creatinine Ratio 13.5 (10-20); Calcium 9.2 mg/dl (8.5-10.1); Creatinine Clr Calc Pharmacy 102.2 ml/min; Est GFR (African American) 103.5 ml/min; Est GFR (Non-African American) 89.3 ml/min; Potassium 3.5 mmol/L (3.5-5.1)
[2021-11-17 03:13] LABS: Appearance Urine Clear (Clear); Bacteria Urine Automated Negative (Negative); Bilirubin Urine Negative (Negative); Blood Urine Trace (Negative); Cast Urine Automated 0 /lpf (0-5); Color Urine Yellow; Glucose Urine UA 1+ (Negative); Ketones Urine Negative (Negative); Leukocyte Esterase Urine Trace (Negative); Nitrite Urine Negative (Negative); Protein Urine Negative (Negative); RBC Urine Automated 0-4 /hpf (0-4); Specific Gravity Urine 1.009 (1.000-1.030); Urobilinogen Urine Negative (Negative)
[2021-11-17 03:36] LABS: Amphetamines+Metham, Urine Neg (Neg); Barbiturates, Urine Neg (Neg); Benzodiazepine, Urine Neg (Neg); Cocaine, Urine Neg (Neg); MDMA (Ecstacy), Urine Neg (Neg); Methadone, Urine Neg (Neg); Opiate, Urine Neg (Neg); Phencyclidine, Urine Neg (Neg)
[2021-11-17 06:36] LABS: Estimated Average Glucose 280 mg/dl; Hemoglobin A1C 11.4 % (4.5-5.6)
[2021-11-17] MEDS: METOPROLOL SUCC 50MG EXT REL TAB PO SCH (08:28)
[2021-11-17] MEDS: lamoTRIgine 100 MG TAB PO SCH ×3 (08:28→22:33)
--- NOTE | 2021-11-17 09:11 | Electroencephalogram ---
EEG Procedure Note Date of Service November 17, 2021 Start / End Times Start Time: 7:44 AM End Time: 8:[address] Daly History Epilepsy Home Medication List Medication Instructions Recorded Confirmed Type Unknown Low Dose Arb 1 tab PO DAILY 11/16/21 11/16/21 History Unknown Statin 1 tab PO HS 11/16/21 11/16/21 History ascorbic acid (vitamin C) 500 mg 500 mg PO DAILY 11/16/21 11/16/21 History tablet (Vitamin C) calcium carbonate 600 mg calcium 600 mg PO DAILY 11/16/21 11/16/21 History (1,500 mg) tablet (Calcium) cholecalciferol (vitamin D3) 25 25 mcg PO DAILY 11/16/21 11/16/21 History mcg (1,000 unit) capsule (Vitamin D3) clobazam 10 mg tablet (Onfi) 10 mg PO HS 11/16/21 11/16/21 History lamotrigine 200 mg tablet 300 mg PO BID 11/16/21 11/16/21 History (Lamictal) lorazepam 1 mg tablet (Ativan) 1 mg PO DIRECTED PRN 11/16/21 11/16/21 History magnesium oxide 400 mg PO DAILY 11/16/21 11/16/21 History metformin 1,000 mg tablet 1,000 mg PO BID 11/16/21 11/16/21 History metoprolol succinate 50 mg 50 mg PO DAILY 11/16/21 11/16/21 History tablet,extended release 24 hr montelukast 10 mg tablet 10 mg PO HS 11/16/21 11/16/21 History (Singulair) pyridoxine (vitamin B6) 100 mg 100 mg PO DAILY 11/16/21 11/16/21 History tablet (Vitamin B-6) vitamin B complex 1 tab PO DAILY 11/16/21 11/16/21 History Inpatient Medication List Insulin Aspart (Insulin Aspart Per Unit) 0 units SC Q6 [facility] Stop: 12/17/21 00:06 Last Admin: 11/17/21 06:04 Dose: 3 units Documented by: [id number] Cosigned by: [id number] Admin: 11/17/21 01:45 Dose: 3 units Documented by: [id number] Cosigned by: [id number] Insulin Glargine (Insulin Glargine Solostar 100 Units/Ml 3 Ml Pen) 7 units SC BID [facility] Stop: 12/17/21 00:06 Last Admin: 11/17/21 08:58 Dose: 7 units Documented by: [id number] Cosigned by: [id number] Admin: 11/17/21 01:37 Dose: 7 units Documented by: [id number] Cosigned by: [id number] Lamotrigine (Lamotrigine 100 Mg Tab) 300 mg PO BID EDUARDO Stop: 12/17/21 08:59 Last Admin: 11/17/21 08:28 Dose: 300 mg Documented by: [id number] Metoprolol Succinate (Metoprolol Succ 50mg Ext Rel Tab) 50 mg PO DAILY EDUARDO Stop: 12/17/21 08:59 Last Admin: 11/17/21 08:28 Dose: 50 mg Documented by: [id number] Miscellaneous (Onfi~Order Awaiting Action) 1 ea N/A QS [facility] Stop: 12/17/21 00:29 Last Admin: 11/17/21 09:01 Dose: Not Given Documented by: [id number] Admin: 11/17/21 03:09 Dose: Not Given Documented by: [id number] Montelukast Sodium (Montelukast Sodium 10 Mg Tablet) 10 mg PO HS [facility] Stop: 12/17/21 00:06 Last Admin: 11/17/21 01:58 Dose: 10 mg Documented by: [id number] Discontinued Medications Sodium Chloride (Nss 1000ml) 1,000 mls @ 999 mls/hr IV .Q1H1M ONE Stop: 11/16/21 18:59 Last Infusion: 11/16/21 19:15 Dose: 0 mls/hr Documented by: [id number] Admin: 11/16/21 18:06 Dose: 999 mls/hr Documented by: [id number] Lactated Ringer's (Lr) 1,000 mls @ 125 mls/hr IV .Q8H EDUARDO Stop: 11/17/21 08:06 Last Admin: 11/17/21 01:58 Dose: 125 mls/hr Documented by: [id number] Labetalol HCl (Labetalol Hcl Iv 5 Mg/Ml 20ml) 10 mg IV NOW STA Stop: 11/16/21 19:15 Last Admin: 11/16/21 19:38 Dose: 10 mg Documented by: [id number] Cosigned by: [id number] Labetalol HCl (Labetalol Hcl Iv 5 Mg/Ml 20ml) 10 mg IV NOW STA Stop: 11/16/21 20:13 Last Admin: 11/17/21 02:11 Dose: Not Given Documented by: [id number] Lamotrigine (Lamotrigine 100 Mg Tab) 300 mg PO NOW STA Stop: 11/16/21 22:51 Last Admin: 11/16/21 23:26 Dose: 300 mg Documented by: [id number] Lorazepam (Lorazepam 2 Mg/1 Ml Vial) 2 mg IV NOW STA; Protocol Stop: 11/16/21 18:00 Last Admin: 11/16/21 18:06 Dose: 2 mg Documented by: [id number] Lorazepam (Lorazepam 2 Mg/1 Ml Vial) 1 mg IV NOW STA; Protocol Stop: 11/16/21 23:14 Last Admin: 11/16/21 23:27 Dose: 1 mg Documented by: [id number] Description This is a 21 electrode EEG with a single channel dedicated to limited EKG. The electrodes were placed in accordance with the International 10-20 system. This EEG is notable for a generalized spike and wave abnormality that is seen periodically throughout the study. There is an underlying posterior dominant symmetrically distributed alpha rhythm. Photic stimulation is unremarkable. Hyperventilation is not performed. There is a symmetric frontal beta rhythm. There is no focal slowing. There is intermittent movement artifact. There are no changes suggestive of sleep. Interpretation Abnormal routine EEG revealing a generalized spike and wave abnormality that is consistent with a primary generalized epilepsy. [facility] Procedure Codes Indication for Procedure (1) Seizure: Neurology Neurology: 18713 EEG include record awake & drowsy
--- NOTE | 2021-11-17 10:28 | Neurology Consultation ---
Date of Consultation November 17, 2021 Assessment & Plan (1) Epilepsy: (2) Seizure: 56-year-old female with a history of epilepsy who presents with a series of generalized tonic-clonic seizures occurring yesterday, without return to baseline. Patient's seizures occur in the context of recent travel [place] to [facility] one week ago as she is in the process of purchasing a new home/moving with her . Would recommend checking a lamotrigine trough level. Would increase patient's dosage of clobazam (Onfi) to 10 mg twice daily. We will need to request an in hospital formulary exemption. I spoke with pharmacist, will get form ready. If unable to get additional Onfi during this hospitalization would then recommend increasing patient's dosage of lamotrigine to 325 mg twice daily. May cover any additional seizures with IV lorazepam. However, if patient continues to exhibit further additional seizures without return to baseline would recommend transfer to a tertiary center for status epilepticus. According to patient's , she has a history of significant intolerance and worsening seizures with most other anticonvulsants which complicates her management. History of Present Illness Reason for Consultation: seizure Requesting Physician: Lexi Daly DO Attending Physician: Brianne Carvajal MD History of Present Illness The patient is a 56-year-old female with a lifelong history of epilepsy who is in the process of moving from [place] to [place] with her . She presented to the emergency department yesterday after 3 witnessed generalized tonic-clonic seizures. It has been several years since her last breakthrough seizure. She has been following with an epileptologist in [facility], Dr. Jamie Ortiz, and is prescribed lamotrigine and clobazam. She has been compliant with her medications and has not had any recent illnesses. They have been in [place] for the past week. She had 3 tonic-clonic seizures yesterday without return to baseline, at which point her contacted EMS. She exhibited some decorticate posturing with her last seizure episode and appeared cyanotic. She is significantly confused/postictal at this time. Patient has a history of intolerance to multiple standard anticonvulsant medications. She also experiences frequent absence episodes per day at baseline. Her relays a history of significant intolerance to Keppra which resulted in further seizures. Patient did have an EEG completed this morning in the emergency department. The EEG does reveal a generalized spike- wave abnormality. Allergies Allergy/AdvReac Type Severity Reaction Status Date / Time ANTISEIZURE MEDICATIONS AdvReac Severe CAUSES Uncoded 11/16/21 19:25 SEIZURES Home Medications Medication Instructions Recorded Confirmed Type Unknown Low Dose Arb 1 tab PO DAILY 11/16/21 11/16/21 History Unknown Statin 1 tab PO HS 11/16/21 11/16/21 History ascorbic acid (vitamin C) 500 mg 500 mg PO DAILY 11/16/21 11/16/21 History tablet (Vitamin C) calcium carbonate 600 mg calcium 600 mg PO DAILY 11/16/21 11/16/21 History (1,500 mg) tablet (Calcium) cholecalciferol (vitamin D3) 25 25 mcg PO DAILY 11/16/21 11/16/21 History mcg (1,000 unit) capsule (Vitamin D3) clobazam 10 mg tablet (Onfi) 10 mg PO HS 11/16/21 11/16/21 History lamotrigine 200 mg tablet 300 mg PO BID 11/16/21 11/16/21 History (Lamictal) lorazepam 1 mg tablet (Ativan) 1 mg PO DIRECTED PRN 11/16/21 11/16/21 History magnesium oxide 400 mg PO DAILY 11/16/21 11/16/21 History metformin 1,000 mg tablet 1,000 mg PO BID 11/16/21 11/16/21 History metoprolol succinate 50 mg 50 mg PO DAILY 11/16/21 11/16/21 History tablet,extended release 24 hr montelukast 10 mg tablet 10 mg PO HS 11/16/21 11/16/21 History (Singulair) pyridoxine (vitamin B6) 100 mg 100 mg PO DAILY 11/16/21 11/16/21 History tablet (Vitamin B-6) vitamin B complex 1 tab PO DAILY 11/16/21 11/16/21 History Patient History Medical History (Updated 11/17/21 @ 10:21 by Anibal Reynoso MD) CAD (coronary artery disease) s/p [place] in 1998 with stent to LAD Diabetes Hypertension Seizure Surgical History (Updated 11/16/21 @ 22:53 by Lexi Daly DO) History of cholecystectomy Family History (Updated 11/16/21 @ 22:53 by Lexi Daly DO) Other Atrial fibrillation Social History (Updated 11/16/21 @ 22:54 by Lexi Daly DO) Smoking Status: Never smoker Hx Alcohol Use: No Hx Substance Use: No Preferred Language: Azeri Communication Ability: Impaired [employer] Required: No Beliefs That Will Affect Care: None marital status: Current Living Situation: Spouse current occupational status: retired Feels Safe at Home: Yes Safety Concerns: Feels Safe At This Time Review of Systems Review of Systems: Unobtainable due to reduced consciousness Exam (Neuro) Physical Exam: Well-developed elderly female. She is lethargic to obtunded. Orientation cannot be assessed. Memory cannot be assessed. Patient is inattentive. She does not exhibit normal spontaneous speech and does not follow commands. Fund of knowledge and knowledge of vocabulary cannot be assessed. Visual andersen and visual acuity cannot be assessed. There is no gaze preference or nystagmus. Eye movements cannot otherwise be assessed. Pupils are equal round reactive to light. Blink reflex intact. There is no facial droop. Hearing grossly intact. Tongue and palate midline. Shoulder shrug cannot be assessed. Sensation cannot be assessed. Deep tendon reflexes are diminished throughout, plantar responses withdrawal. Coordination cannot be assessed. Patient does not cooperate adequately for direct ophthalmoscopic examination. Carotid pulses normal bilaterally, no bruits. Gait and station cannot be tested. Muscle strength cannot be assessed although there is no gross hemiparesis or paraparesis. Muscle tone diffusely normal. No atrophy. No abnormal movements. Patient frequently picks at herself and grabs at lines. Results & Data ([facility]) Vital Signs (Past 12 Hours) Vital Signs Temp Pulse Resp BP Pulse Ox Pulse Ox 11/17/21 08:44 92 H 18 164/90 H 94 11/17/21 02:00 100 H 14 167/92 H 93 11/17/21 00:26 96 H 16 160/81 H 93 93 11/16/21 23:00 37.0 C 98 H 16 94 Laboratory Results WBC 11.28, hemoglobin 14.4, hematocrit 43.0, MCV 88.5, platelet count 275, sodium 139, potassium 3.5, BUN 10, creatinine 0.74, glucose 233, hemoglobin A1c 11.4, calcium 9.2. Diagnostic Findings CT of the head negative for hemorrhage or acute process. There is a Alexey cisterna magna. I independently reviewed the images as well and agree with the radiologist's findings. Electrocardiogram reveals sinus tachycardia, 115 bpm. An EEG completed this morning revealed a generalized spike-wave abnormality consistent with an underlying primary generalized epilepsy. Coding Level of Care Code 98337 Initial Inpt Care Lvl 3 Diagnoses Epilepsy G40.909 Seizure R56.9
--- NOTE | 2021-11-17 15:13 | Hospitalist Progress Note ---
Date of Service November 17, 2021 Assessment & Plan (1) Seizure: Plan: Jami Magallon is a 56 yo female with longstanding history of epilepsy (absence seizures as well as tonic-clonic seizures), reportedly well controlled on Lamictal 300mg BID and Clobazam 10mg HS, admitted 11/16/21 following witnessed tonic-clonic seizures. Seizure, hx epilepsy - Patient's last reported tonic-clonic seizure 6 years ago. + medication compliance. - Patient and do report increased stress as they are currently "between homes" with a move from [place] to [place], [place] 1 week ago; currently living with family - Maintain seizure precautions - Brain MRI ordered, pending - EEG 11/17: Abnormal routine EEG revealing a generalized spike and wave abnormality that is consistent with a primary generalized epilepsy. - Ativan 2mg IV as needed for seizure activity - Neurology consulted. Appreciate their recommendations - Continue Lamictal 300mg po BID and Clobazam 10mg po BID per neurology recommendation (per patient's , she has a history of significant intolerance and worsening seizures with most other anticonvulsants, including Keppra) - Recommend checking lamictal trough level, pending - If patient continues to exhibit further additional seizures without return to baseline would recommend transfer to a tertiary center for status epilepticus - Request records from PCP and Epileptologist, awaiting CAD (coronary artery disease) - Patient denies chest pain. HSTroponin = 12.3 - Awaiting home records (need to clarify home statin and home ARB) - Continue metoprolol - Patient does not have ASA on home list - unclear why Hypertensive crisis treated with IV Labetalol - Continue home Metoprolol - Continue to montior Diabetes - A1c 11.4% on admission - Continue Lantus/ISS, goal blood sugar 100 - 140 FENGI: NPO DVT ppx: Lovenox 40mg Dispo: PCU Code status: FULL CODE (2) Epilepsy: (3) CAD (coronary artery disease): (4) Hypertension: (5) Diabetes: Admission and Anticipated Discharge Date Admission Date: November 16, 2021 Supervising Physician Co-Signing Physician Notes Resident Physician Supervision Note: I independently interviewed and examined the patient and verified the gan history and physical, reviewed labs and image studies and agree with resident Dr. Iniguez findings and care plan. Subjective Patient seen and evaluated at bedside with in the room. On initial attempt to see patient this morning, she was being see by neurology. When I went to re-evaluate patient this afternoon, she was awake, alert, and conversant. However, history remains limited due to patient's confusion/post-ictal status. still at bedside. Patient is able to report that she is in the hospital due to seizure. She has no pain at this time and specifically denies ANDRADE, CP, and abdominal pain. notes that patient's mentation has significantly improved, specifically over the past hour. Review of Systems Review of Systems: See HPI Physical Exam Physical Exam: GENERAL: No acute distress. Resting comfortably in bed. Well developed and well nourished. Vital signs reviewed. EYES: No nystagmus. Anicteric sclerae. HENT: Moist mucous membranes. RESPIRATORY: Unlabored respirations. EXTREMITIES: No edema. Non-tender. SKIN: Warm, dry. NEUROLOGIC: A/O x3. Gait not assessed. Spontaneously moves all extremities. PSYCHIATRIC: Cooperative. Results & Data Results & Data ([facility]) Vital Signs (Past 12 Hours) Vital Signs Pulse Resp BP Pulse Ox 11/17/21 13:54 83 20 167/96 H 94 11/17/21 11:54 82 22 131/90 96 11/17/21 08:44 92 H 18 164/90 H 94 Laboratory Results 11/17/21 11/17/21 11/17/21 Range/Units 12:00 08:18 05:57 WBC (4.8-10.8) K/uL RBC (4.2-5.4) M/uL Hgb (12.0-16.0) g/dL Hct (37-47) % MCV (80-100) fL MCH (25-34) pg MCHC (32-36) g/dL RDW Std Deviation (36.4-46.3) fL RDW Coeff of Antwan (11.5-14.5) % Plt Count (130-400) K/uL MPV (7.4-10.4) fL Immature Gran % (Auto) % Neut % (Auto) % Lymph % (Auto) % Stone % (Auto) % Eos % (Auto) % Baso % (Auto) % Neut # (Auto) (1.4-6.5) K/uL Lymph # (Auto) (1.2-3.4) K/uL Stone # (Auto) (0.11-0.59) K/uL Eos # (Auto) (0-0.5) K/uL Baso # (Auto) (0-0.2) K/uL Immature Gran # (Auto) (0.00-0.02) K/uL Sodium (136-145) mmol/L Potassium (3.5-5.1) mmol/L Chloride (98-107) mmol/L Carbon Dioxide (21-32) mmol/L Anion Gap (3-11) BUN (6-23) mg/dl Creatinine (0.6-1.2) mg/dl Est Cr Clr Drug Dosing ml/min Est GFR ( Amer) ml/min Est GFR (Non-Af Amer) ml/min BUN/Creatinine Ratio (10-20) Glucose (70-99(Fasting)) mg/dl POC Glucose 220 H 200 H 226 H (70-99) mg/dl Estimat Average Glucose mg/dl Hemoglobin A1c (4.5-5.6) % Calcium (8.5-10.1) mg/dl Magnesium (1.7-2.4) mg/dl Total Bilirubin (0.2-1.0) mg/dl Direct Bilirubin (0-0.2) mg/dl AST (13-39) U/L ALT (7-52) U/L Alkaline Phosphatase (34-104) U/L Total Creatine Kinase (26-192) U/L Troponin I High Sens (0-14) pg/ml Total Protein (6.0-8.3) gm/dl Albumin (3.4-5.0) gm/dl Procalcitonin (0-0.5) ng/ml TSH (0.300-4.500) uIu/ml Urine Color Urine Appearance (Clear) Urine pH (4.5-7.5) Ur Specific [place] (1.000-1.030) Urine Protein (Negative) Urine Glucose (UA) (Negative) Urine Ketones (Negative) Urine Blood (Negative) Urine Nitrite (Negative) Urine Bilirubin (Negative) Urine Urobilinogen (Negative) Ur Leukocyte Esterase (Negative) Urine WBC (Auto) (0-5) /hpf Urine RBC (Auto) (0-4) /hpf U Hyaline Cast (Auto) (0-5) /lpf U Epithel Cells (Auto) (0-5) /lpf Urine Bacteria (Auto) (Negative) Urine Opiates Screen (Neg) Ur Methadone, Qual (Neg) Urine Barbiturates (Neg) Ur Phencyclidine (PCP) (Neg) U Amphetamin/Meth Scrn (Neg) MDMA (Ecstasy) Screen (Neg) U Benzodiazepines Scrn (Neg) Ur Cocaine Metabolite (Neg) U Marijuana (THC) Screen (Neg) Ethyl Alcohol mg/dL (<10.0) mg/dl SARS-CoV-2, RNA, NAAT (NEGATIVE) 11/17/21 11/17/21 11/17/21 Range/Units 02:46 02:46 01:50 WBC (4.8-10.8) K/uL RBC (4.2-5.4) M/uL Hgb (12.0-16.0) g/dL Hct (37-47) % MCV (80-100) fL MCH (25-34) pg MCHC (32-36) g/dL RDW Std Deviation (36.4-46.3) fL RDW Coeff of Antwan (11.5-14.5) % Plt Count (130-400) K/uL MPV (7.4-10.4) fL Immature Gran % (Auto) % Neut % (Auto) % Lymph % (Auto) % Stone % (Auto) % Eos % (Auto) % Baso % (Auto) % Neut # (Auto) (1.4-6.5) K/uL Lymph # (Auto) (1.2-3.4) K/uL Stone # (Auto) (0.11-0.59) K/uL Eos # (Auto) (0-0.5) K/uL Baso # (Auto) (0-0.2) K/uL Immature Gran # (Auto) (0.00-0.02) K/uL Sodium (136-145) mmol/L Potassium (3.5-5.1) mmol/L Chloride (98-107) mmol/L Carbon Dioxide (21-32) mmol/L Anion Gap (3-11) BUN (6-23) mg/dl Creatinine (0.6-1.2) mg/dl Est Cr Clr Drug Dosing ml/min Est GFR ( Amer) ml/min Est GFR (Non-Af Amer) ml/min BUN/Creatinine Ratio (10-20) Glucose (70-99(Fasting)) mg/dl POC Glucose (70-99) mg/dl Estimat Average Glucose 280 mg/dl Hemoglobin A1c 11.4 H (4.5-5.6) % Calcium (8.5-10.1) mg/dl Magnesium (1.7-2.4) mg/dl Total Bilirubin (0.2-1.0) mg/dl Direct Bilirubin (0-0.2) mg/dl AST (13-39) U/L ALT (7-52) U/L Alkaline Phosphatase (34-104) U/L Total Creatine Kinase (26-192) U/L Troponin I High Sens (0-14) pg/ml Total Protein (6.0-8.3) gm/dl Albumin (3.4-5.0) gm/dl Procalcitonin (0-0.5) ng/ml TSH (0.300-4.500) uIu/ml Urine Color Yellow Urine Appearance Clear (Clear) Urine pH 6.0 (4.5-7.5) Ur Specific [place] 1.009 (1.000-1.030) Urine Protein Negative (Negative) Urine Glucose (UA) 1+ H (Negative) Urine Ketones Negative (Negative) Urine Blood Trace H (Negative) Urine Nitrite Negative (Negative) Urine Bilirubin Negative (Negative) Urine Urobilinogen Negative (Negative) Ur Leukocyte Esterase Trace H (Negative) Urine WBC (Auto) 1-5 (0-5) /hpf Urine RBC (Auto) 0-4 (0-4) /hpf U Hyaline Cast (Auto) 0 (0-5) /lpf U Epithel Cells (Auto) 10-20 H (0-5) /lpf Urine Bacteria (Auto) Negative (Negative) Urine Opiates Screen Neg (Neg) Ur Methadone, Qual Neg (Neg) Urine Barbiturates Neg (Neg) Ur Phencyclidine (PCP) Neg (Neg) U Amphetamin/Meth Scrn Neg (Neg) MDMA (Ecstasy) Screen Neg (Neg) U Benzodiazepines Scrn Neg (Neg) Ur Cocaine Metabolite Neg (Neg) U Marijuana (THC) Screen Neg (Neg) Ethyl Alcohol mg/dL (<10.0) mg/dl SARS-CoV-2, RNA, NAAT (NEGATIVE) 11/17/21 11/17/21 11/17/21 Range/Units 01:50 01:50 01:50 WBC 11.28 H (4.8-10.8) K/uL RBC 4.86 (4.2-5.4) M/uL Hgb 14.4 (12.0-16.0) g/dL Hct 43.0 (37-47) % MCV 88.5 (80-100) fL MCH 29.6 (25-34) pg MCHC 33.5 (32-36) g/dL RDW Std Deviation 43.0 (36.4-46.3) fL RDW Coeff of Antwan 13.2 (11.5-14.5) % Plt Count 275 (130-400) K/uL MPV 9.7 (7.4-10.4) fL Immature Gran % (Auto) 0.4 % Neut % (Auto) 73.5 % Lymph % (Auto) 17.0 % Stone % (Auto) 8.8 % Eos % (Auto) 0.1 % Baso % (Auto) 0.2 % Neut # (Auto) 8.30 H (1.4-6.5) K/uL Lymph # (Auto) 1.92 (1.2-3.4) K/uL Stone # (Auto) 0.99 H (0.11-0.59) K/uL Eos # (Auto) 0.01 (0-0.5) K/uL Baso # (Auto) 0.02 (0-0.2) K/uL Immature Gran # (Auto) 0.04 H (0.00-0.02) K/uL Sodium 139 (136-145) mmol/L Potassium 3.5 (3.5-5.1) mmol/L Chloride 104 (98-107) mmol/L Carbon Dioxide 26 (21-32) mmol/L Anion Gap 9 (3-11) BUN 10 (6-23) mg/dl Creatinine 0.74 (0.6-1.2) mg/dl Est Cr Clr Drug Dosing 102.2 ml/min Est GFR ( Amer) 103.5 ml/min Est GFR (Non-Af Amer) 89.3 ml/min BUN/Creatinine Ratio 13.5 (10-20) Glucose 233 H (70-99(Fasting)) mg/dl POC Glucose (70-99) mg/dl Estimat Average Glucose mg/dl Hemoglobin A1c (4.5-5.6) % Calcium 9.2 (8.5-10.1) mg/dl Magnesium (1.7-2.4) mg/dl Total Bilirubin (0.2-1.0) mg/dl Direct Bilirubin (0-0.2) mg/dl AST (13-39) U/L ALT (7-52) U/L Alkaline Phosphatase (34-104) U/L Total Creatine Kinase (26-192) U/L Troponin I High Sens (0-14) pg/ml Total Protein (6.0-8.3) gm/dl Albumin (3.4-5.0) gm/dl Procalcitonin < 0.05 (0-0.5) ng/ml TSH (0.300-4.500) uIu/ml Urine Color Urine Appearance (Clear) Urine pH (4.5-7.5) Ur Specific [place] (1.000-1.030) Urine Protein (Negative) Urine Glucose (UA) (Negative) Urine Ketones (Negative) Urine Blood (Negative) Urine Nitrite (Negative) Urine Bilirubin (Negative) Urine Urobilinogen (Negative) Ur Leukocyte Esterase (Negative) Urine WBC (Auto) (0-5) /hpf Urine RBC (Auto) (0-4) /hpf U Hyaline Cast (Auto) (0-5) /lpf U Epithel Cells (Auto) (0-5) /lpf Urine Bacteria (Auto) (Negative) Urine Opiates Screen (Neg) Ur Methadone, Qual (Neg) Urine Barbiturates (Neg) Ur Phencyclidine (PCP) (Neg) U Amphetamin/Meth Scrn (Neg) MDMA (Ecstasy) Screen (Neg) U Benzodiazepines Scrn (Neg) Ur Cocaine Metabolite (Neg) U Marijuana (THC) Screen (Neg) Ethyl Alcohol mg/dL (<10.0) mg/dl SARS-CoV-2, RNA, NAAT (NEGATIVE) 11/17/21 11/17/21 11/16/21 Range/Units 01:50 01:34 18:03 WBC (4.8-10.8) K/uL RBC (4.2-5.4) M/uL Hgb (12.0-16.0) g/dL Hct (37-47) % MCV (80-100) fL MCH (25-34) pg MCHC (32-36) g/dL RDW Std Deviation (36.4-46.3) fL RDW Coeff of Antwan (11.5-14.5) % Plt Count (130-400) K/uL MPV (7.4-10.4) fL Immature Gran % (Auto) % Neut % (Auto) % Lymph % (Auto) % Stone % (Auto) % Eos % (Auto) % Baso % (Auto) % Neut # (Auto) (1.4-6.5) K/uL Lymph # (Auto) (1.2-3.4) K/uL Stone # (Auto) (0.11-0.59) K/uL Eos # (Auto) (0-0.5) K/uL Baso # (Auto) (0-0.2) K/uL Immature Gran # (Auto) (0.00-0.02) K/uL Sodium (136-145) mmol/L Potassium (3.5-5.1) mmol/L Chloride (98-107) mmol/L Carbon Dioxide (21-32) mmol/L Anion Gap (3-11) BUN (6-23) mg/dl Creatinine (0.6-1.2) mg/dl Est Cr Clr Drug Dosing ml/min Est GFR ( Amer) ml/min Est GFR (Non-Af Amer) ml/min BUN/Creatinine Ratio (10-20) Glucose (70-99(Fasting)) mg/dl POC Glucose 250 H (70-99) mg/dl Estimat Average Glucose mg/dl Hemoglobin A1c (4.5-5.6) % Calcium (8.5-10.1) mg/dl Magnesium (1.7-2.4) mg/dl Total Bilirubin (0.2-1.0) mg/dl Direct Bilirubin (0-0.2) mg/dl AST (13-39) U/L ALT (7-52) U/L Alkaline Phosphatase (34-104) U/L Total Creatine Kinase (26-192) U/L Troponin I High Sens (0-14) pg/ml Total Protein (6.0-8.3) gm/dl Albumin (3.4-5.0) gm/dl Procalcitonin (0-0.5) ng/ml TSH (0.300-4.500) uIu/ml Urine Color Urine Appearance (Clear) Urine pH (4.5-7.5) Ur Specific Granville (1.000-1.030) Urine Protein (Negative) Urine Glucose (UA) (Negative) Urine Ketones (Negative) Urine Blood (Negative) Urine Nitrite (Negative) Urine Bilirubin (Negative) Urine Urobilinogen (Negative) Ur Leukocyte Esterase (Negative) Urine WBC (Auto) (0-5) /hpf Urine RBC (Auto) (0-4) /hpf U Hyaline Cast (Auto) (0-5) /lpf U Epithel Cells (Auto) (0-5) /lpf Urine Bacteria (Auto) (Negative) Urine Opiates Screen (Neg) Ur Methadone, Qual (Neg) Urine Barbiturates (Neg) Ur Phencyclidine (PCP) (Neg) U Amphetamin/Meth Scrn (Neg) MDMA (Ecstasy) Screen (Neg) U Benzodiazepines Scrn (Neg) Ur Cocaine Metabolite (Neg) U Marijuana (THC) Screen (Neg) Ethyl Alcohol mg/dL < 10.0 (<10.0) mg/dl SARS-CoV-2, RNA, NAAT NEGATIVE (NEGATIVE) 11/16/21 11/16/21 11/16/21 Range/Units 17:54 17:54 17:54 WBC 10.74 (4.8-10.8) K/uL RBC 5.09 (4.2-5.4) M/uL Hgb 15.1 (12.0-16.0) g/dL Hct 45.2 (37-47) % MCV 88.8 (80-100) fL MCH 29.7 (25-34) pg MCHC 33.4 (32-36) g/dL RDW Std Deviation 42.8 (36.4-46.3) fL RDW Coeff of Antwan 13.1 (11.5-14.5) % Plt Count 273 (130-400) K/uL MPV 9.9 (7.4-10.4) fL Immature Gran % (Auto) 0.6 % Neut % (Auto) 86.3 % Lymph % (Auto) 9.5 % Stone % (Auto) 3.3 % Eos % (Auto) 0.1 % Baso % (Auto) 0.2 % Neut # (Auto) 9.28 H (1.4-6.5) K/uL Lymph # (Auto) 1.02 L (1.2-3.4) K/uL Stone # (Auto) 0.35 (0.11-0.59) K/uL Eos # (Auto) 0.01 (0-0.5) K/uL Baso # (Auto) 0.02 (0-0.2) K/uL Immature Gran # (Auto) 0.06 H (0.00-0.02) K/uL Sodium 137 (136-145) mmol/L Potassium 4.2 (3.5-5.1) mmol/L Chloride 103 (98-107) mmol/L Carbon Dioxide 23 (21-32) mmol/L Anion Gap 11 (3-11) BUN 17 (6-23) mg/dl Creatinine 0.79 (0.6-1.2) mg/dl Est Cr Clr Drug Dosing 95.8 ml/min Est GFR ( Amer) 95.6 ml/min Est GFR (Non-Af Amer) 82.5 ml/min BUN/Creatinine Ratio 21.5 H (10-20) Glucose 281 H (70-99(Fasting)) mg/dl POC Glucose (70-99) mg/dl Estimat Average Glucose mg/dl Hemoglobin A1c (4.5-5.6) % Calcium 9.5 (8.5-10.1) mg/dl Magnesium 1.7 (1.7-2.4) mg/dl Total Bilirubin 0.5 (0.2-1.0) mg/dl Direct Bilirubin 0.1 (0-0.2) mg/dl AST 27 (13-39) U/L ALT 31 (7-52) U/L Alkaline Phosphatase 67 (34-104) U/L Total Creatine Kinase 186 (26-192) U/L Troponin I High Sens 12.3 (0-14) pg/ml Total Protein 7.8 (6.0-8.3) gm/dl Albumin 4.6 (3.4-5.0) gm/dl Procalcitonin (0-0.5) ng/ml TSH 2.447 (0.300-4.500) uIu/ml Urine Color Urine Appearance (Clear) Urine pH (4.5-7.5) Ur Specific [place] (1.000-1.030) Urine Protein (Negative) Urine Glucose (UA) (Negative) Urine Ketones (Negative) Urine Blood (Negative) Urine Nitrite (Negative) Urine Bilirubin (Negative) Urine Urobilinogen (Negative) Ur Leukocyte Esterase (Negative) Urine WBC (Auto) (0-5) /hpf Urine RBC (Auto) (0-4) /hpf U Hyaline Cast (Auto) (0-5) /lpf U Epithel Cells (Auto) (0-5) /lpf Urine Bacteria (Auto) (Negative) Urine Opiates Screen (Neg) Ur Methadone, Qual (Neg) Urine Barbiturates (Neg) Ur Phencyclidine (PCP) (Neg) U Amphetamin/Meth Scrn (Neg) MDMA (Ecstasy) Screen (Neg) U Benzodiazepines Scrn (Neg) Ur Cocaine Metabolite (Neg) U Marijuana (THC) Screen (Neg) Ethyl Alcohol mg/dL (<10.0) mg/dl SARS-CoV-2, RNA, NAAT (NEGATIVE) Diagnostic Findings [place], [place] [phone] CT Scan Report Patient:JAMI MAGALLON Admit Date:11/16/21 MR#:[id number] Address1:[address] [place] [address] Acct ID:[id number] Address2: Date:1965 [facility] Zip:[place] [address] Age:56 Location:ED Sex:F Room/Bed: Att Phy: Diagnosis:SEIZURE Polina Phy:PCP,NO Service Date:11/16/21 Fam Phy: Interpreting Phy:Roman Hunt MDAdmit Phy: Ordering Phy:Rm Cunningham M.D. cc: ~ CT OF THE HEAD WITHOUT CONTRAST CLINICAL HISTORY: seizure, ams persistent COMPARISON STUDY: No previous studies for comparison. CT DOSE: 884.08 mGy.cm TECHNIQUE: Helical axial images of the head were obtained without IV contrast. Automated exposure control was utilized for the study. A dose lowering technique was utilized adhering to the principles of ALARA. FINDINGS: No acute intracranial hemorrhage, midline shift or mass effect is present. Ventricular system is unremarkable. Basal cisterns are patent. 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 There are no findings to suggest acute dural sinus thrombosis or acute territorial infarct. No acute calvarial fracture is present. There are postoperative findings within the sinuses. Small amount of secretions within the left sphenoid sinus are present. This mild mucosal thickening of the ethmoid and left maxillary sinuses. Mastoid air cells are clear. IMPRESSION: No acute intracranial findings. ACT 112: Negative or not required by law. Electronically signed by: Roman Hunt M.D. 11/16/2021 7:03 PM Dictated:11/16/211856 Transcribed: 11/16/211856 ----- EEG Description This is a 21 electrode EEG with a single channel dedicated to limited EKG. The electrodes were placed in accordance with the International 10-20 system. This EEG is notable for a generalized spike and wave abnormality that is seen periodically throughout the study. There is an underlying posterior dominant symmetrically distributed alpha rhythm. Photic stimulation is unremarkable. Hyperventilation is not performed. There is a symmetric frontal beta rhythm. There is no focal slowing. There is intermittent movement artifact. There are no changes suggestive of sleep. Interpretation Abnormal routine EEG revealing a generalized spike and wave abnormality that is consistent with a primary generalized epilepsy. [facility] EEG Procedure Codes Indication for Procedure (1) Seizure: Neurology Neurology: 15270 EEG include record awake & drowsy Signed By: <Electronically signed by Anibal Reynoso MD> 11/17/21910 Created:11/17/21905 Resident Activity Tracking Resident Involvement: Resident Care Provided Care Provided: [facility] Medicine
[2021-11-17] MEDS ORDERED: CLOBAZAM 10 MG PO SCH (21:00)
[2021-11-18] MEDS: INSULIN ASPART PER UNIT SC SCH ×3 (00:49→14:00)
--- NOTE | 2021-11-18 07:35 | Magnetic Resonance Report ---
MRI OF THE BRAIN WITHOUT CONTRAST CLINICAL HISTORY: Seizure. COMPARISON STUDY: Head CT November 16, 2021. TECHNIQUE: Utilizing a 1.5 Maryjo magnet and dedicated coil, multiplanar, multiecho imaging of the bra in was performed without intravenous contrast. Thin cut coronal T2 imaging was performed. FINDINGS: There are no foci of restricted diffusion to suggest acute infarct. A punctate focus of inc reased signal intensity within the right frontal lobe on axial image 15 of 25 of the diffusion-weight ed sequence is likely artifactual. Ventricular system is unremarkable. Basal cisterns are patent. The re are no extra-axial collections. Incidental note is made of a daryn cisterna magna. No MR evidence f or mesial temporal sclerosis. No intracranial masses are identified on this unenhanced examination. C alvarial signal is within normal limits. Orbits are unremarkable. Postoperative findings within the s inuses are present. There are secretions within the left sphenoid sinus. Mild left maxillary sinus mu cosal thickening is present. Flow-voids for the major intracranial vessels are present. IMPRESSION: 1. No acute intracranial findings. 2. Unremarkable unenhanced MRI of the brain. 3. Punctate focus of apparent restricted diffusion within the right frontal lobe which is likely chris factual. ACT 112: Negative or not required by law. Electronically signed by: Roman Hunt M.D. 11/18/2021 7:33 AM
[2021-11-18] MEDS ORDERED: ENOXAPARIN INJ 40 MG/0.4 ML SYR SQ SCH (09:00)
[2021-11-18 09:03] LABS: Hemoglobin 14.6 g/dL (12.0-16.0); Mean Corpuscular Hemoglobin 30.2 pg (25-34); Mean Corpuscular Hgb Conc 33.2 g/dL (32-36); Mean Corpuscular Volume 91.1 fL (80-100); Mean Platelet Volume 9.8 fL (7.4-10.4); Platelet Count 266 K/uL (130-400); RDW Coefficient of Variation 13.5 % (11.5-14.5); RDW Standard Deviation 44.9 fL (36.4-46.3); Red Blood Count 4.83 M/uL (4.2-5.4); White Blood Count 8.67 K/uL (4.8-10.8)
[2021-11-18 09:10] LABS: BUN Creatinine Ratio 17.4 (10-20); Calcium 9.6 mg/dl (8.5-10.1); Est GFR (African American) 86.3 ml/min; Est GFR (Non-African American) 74.5 ml/min; Magnesium 1.9 mg/dl (1.7-2.4); Potassium 3.6 mmol/L (3.5-5.1)
[2021-11-18] MEDS: METOPROLOL SUCC 50MG EXT REL TAB PO SCH (09:11)
[2021-11-18] MEDS: lamoTRIgine 100 MG TAB PO SCH (09:11)
[2021-11-18] MEDS: INSULIN GLARGINE SOLOSTAR 100 UNITS/ML 3 ML PEN SC SCH (09:16)
--- NOTE | 2021-11-18 10:04 | Neurology Progress Note ---
Date of Service November 18, 2021 Assessment & Plan (1) Epilepsy: Plan: 56-year-old female with a longstanding history of seizure disorder characterized by multiple different seizure types including absence, myoclonic, and generalized tonic-clonic seizures. 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 She continues to have multiple abscence seizures, typically in the evenings while her other seizure subtypes including generalized tonic-clonic seizures have been well controlled with her anticonvulsants until the recent episode that may have been triggered by formaldehyde exposure according to the patient. I have recommended that she increase her dosage of Onfi to 10 mg twice daily. She will continue with lamotrigine 300 mg twice daily. Patient does seem to be back to her typical baseline and does not require additional neurological testing during this current hospitalization. Patient should follow-up with her epileptologist back home. We can follow her locally in the [facility] neurology clinic after she has completed her move to [place]. Admission and Anticipated Discharge Date Admission Date: November 16, 2021 Subjective Follow-up for seizure Patient is significantly improved this morning. Mentation improved. No further seizure episodes observed. Relays her lifelong history of epilepsy, incomplete control of abscence seizures which tend to occur in the evening, and rare generalized convulsive seizures, with last such seizure occurring in 2016, after which Onfi was added to her medication regimen. Recalls a prolonged postictal timeframe with her last generalized seizure, lasting several days, in 2016. Patient also indicates that her recent seizure was likely provoked by formaldehyde exposure. She indicates that she was shopping for linens and reports that formaldehyde is often used in the manufacture of linens and believes she had an exposure to this chemical which likely provoked her recent generalized convulsive seizure. She reports compliance with her anticonvulsant medications. Patient also indicated to me that if necessary, she could be given phenytoin IV for acute seizure control in the future if necessary. However, she has not tolerated long-term use of oral phenytoin for seizure prevention previously. Results & Data ([facility]) Vital Signs (Past 12 Hours) Vital Signs Temp Pulse Pulse Resp BP BP Pulse Ox 11/18/21 07:23 36.7 C 76 17 122/69 92 11/18/21 03:53 37.2 C 75 20 100/62 94 11/18/21 00:07 06/01/22 22:30 37.0 C 83 80 18 128/83 95 Pulse Ox 11/18/21 07:23 11/18/21 03:53 11/18/21 00:07 95 11/17/21 22:30 Laboratory Results WBC 8.67, hemoglobin 14.6, hematocrit 44.0, platelet count 266, sodium 140, potassium 3.6, BUN 15, creatinine 0.86, glucose 167, magnesium 1.9, lamotrigine level pending. Brain MRI completed yesterday negative for acute findings. Punctate focus of apparent restricted diffusion within the right frontal lobe likely artifactual. No MR evidence of mesial temporal sclerosis. I reviewed the images as well as the radiologist interpretation of this test and agree with these findings. EEG completed yesterday revealed a generalized spike-wave abnormality. Exam (Neuro) Neurologic: Oriented to:: Person, Place and Time Memory: Remote Intact Attention: Span Intact and Concentration Intact Speech Fluency: negative Dysa rthria or Dysfluency Fund of Knowledge: Current Events, Past History and Vocabulary Cranial Nerves: Normal II, III, IV, , V, VII, VIII, IX, X, XI and XII Motor Strength: Normal Lower Extremities and Normal Upper Extremities Muscle Bulk/Involuntary Movements: No Involuntary Movements Coding Level of Care Code 53843 Subseq Hosp Care Lvl 2 Diagnoses Epilepsy G40.909
--- NOTE | 2021-11-18 10:38 | Discharge Summary ---
Date of Service November 18, 2021 Admission HPI Per Admitting Provider Jami Magallon is a 56yo female with history of DM, HTN and longstanding history of seizure disorder presenting from home with witnessed seizure x 3. Patient is from [place]. She and her recently bought a home in [place] and are relocating here - they have been in [place] x 6 days. Patient was sitting on the porch today with her when she developed a tonic-clonic seizure which lasted approximately 2.5 minutes. reports she was post-ictal, non-verbal and minimally responsive following this seizure. She had a second seizure around 14:00 which was shorter in duration but "more violent" than the first. Patient had a third seizure around 16:00. reports patient appeared cyanotic during the last seizure and seemed to be demonstrating decorticate posturing. called 911 following the third seizure. reports patient is disoriented and combative Patient was first diagnosed with epilepsy following an episode of heat stroke at age [age]. Her states that she has been on multiple medications in the past and has had reactions or worsening seizures on most of them. She is particularly intolerant to Keppra. She is presently on stable doses of Lamictal and Clobazam. reports that patient's last tonic-clonic seizure was in September 2015. She was following with an Epileptologist - Dr. Jamie Navas from [facility]. She also has frequent absence seizures at baseline - "dozens/day". reports and increased frequency and duration of absence seizures over the last several days. She does report compliance with her medications. Patient has had increased stress and fatigue over the last week due to the move. Otherwise, no acute changes. No drug or EtOH use. No report of tick bites or mosquito bites. Patient has received her Covid-19 vaccinations as well as booster with her second booster being 10 days ago. Upon arrival to the ER patient hypertensive at 216/95 ER Course: Labetalol 10mg IV, NSS x 1L, Ativan 2mg IV Admission Exam Per Admitting Provider General: patient somnolent, arousable, answers some questions - states name Skin: warm, dry, intact, sunburn present on anterior thighs bilaterally HEENT: NC/AT, PERRL, EOMI, anicteric sclera, conjunctiva without injection, external ear normal to inspection and nontender, nares patent, slightly dry mucus membranes, dentition intact, no oropharyngeal lesions, neck supple, trachea midline, no LAD, no thyromegaly, no JVD Heart: +S1/S2, regular, tachycardic, no m/r/g Lungs: equal air entry bilaterally, no rales/rhonchi/wheezes Abd: +BS, soft, NT/ND, no masses/organomegaly/ascites Ext: warm, 2+ pulses in UE/LE bilaterally, no clubbing/cyanosis or edema Neuro: somnolent, arousable, picking at O2 monitor and IV site, answers some questions appropriately, moving all extremities with equal strength, following commands Principal Diagnosis epilepsy Discharge Exam GENERAL: No acute distress. Well developed and well nourished. Vital signs reviewed. EYES: PERRLA. EOMI. Anicteric sclerae. HENT: Moist mucous membranes. RESPIRATORY: Clear to auscultation bilaterally. No wheezing, rales, or rhonchi. CARDIOVASCULAR: Regular rate and rhythm. No murmurs. ABDOMEN: Soft, non-tender and non-distended. Normal bowel sounds. EXTREMITIES: No edema. Non-tender. SKIN: Warm, dry. NEUROLOGIC: A/O x4. No focal neurological deficits. CN II-XII grossly intact. 5/5 strength in BUE and BLE. PSYCHIATRIC: Cooperative. Appropriate mood and affect. Discharge Data Allergies Allergy/AdvReac Type Severity Reaction Status Date / Time ANTISEIZURE MEDICATIONS AdvReac Severe CAUSES Uncoded 11/16/21 19:25 SEIZURES Consultations 11/16/21 20:12 ED Decision to Admit Stat 11/17/21 00:07 Consult Neurology Routine Ordered Studies 11/16/21 17:59 CT head/brain wo con Stat 11/17/21 00:07 MR brain seizure wo con Urgent Hospital Course (1) Seizure: Jami Magallon is a 56 yo female with longstanding history of epilepsy (absence seizures, myoclonic, and generalized tonic-clonic seizures), reportedly well controlled on Lamictal 300mg BID and Clobazam 10mg HS, admitted 11/16/21 following witnessed generalized tonic-clonic seizures. Seizure, hx epilepsy - Patient's last reported tonic-clonic seizure 6 years ago. Reports + appropriate medication compliance. - Patient and do report increased stress as they are currently planning a move from [place] to [place], [place] (currently here visiting while they close on their new house) - Brain MRI 11/17: No acute intracranial findings. Unremarkable unenhanced MRI of the brain. Punctate focus of apparent restricted diffusion within the right frontal lobe which is likely artifactual. - EEG 11/17: Abnormal routine EEG revealing a generalized spike and wave abnormality that is consistent with a primary generalized epilepsy. - Neurology consulted. - Home med dose increased - Lamictal 300mg po BID and Clobazam 10mg po BID per neurology recommendation (per patient's , she has a history of significant intolerance and worsening seizures with most other anticonvulsants, including Keppra) - Recommend checking lamictal trough level, pending - Request records from PCP and Epileptologist, no records available before discharge CAD (coronary artery disease) - Patient denies chest pain. HSTroponin = 12.3 - Awaiting home records (need to clarify home statin and home ARB), records not received prior to discharge - Continue metoprolol - Patient does not have ASA on home list - unclear why Hypertensive crisis treated with IV Labetalol, resolved - Continue home Metoprolol Diabetes - A1c 11.4% on admission - Lantus/ISS while inpatient with goal blood sugar 100 - 140 - Metformin continued on discharge. Patient preferred to discuss with her PCP about further outpatient management. - Encourage compliance with meds and patient to f/u with PCP for further management Code status: FULL CODE (2) Epilepsy: (3) CAD (coronary artery disease): (4) Hypertension: (5) Diabetes: Total Time Total Time Spent Total Time Spent (In Minutes): See attending attestation Discharge Plan Discharge Items Patient Disposition: Home - Self-Care Reason For Visit: MULTIPLE SEIZURES Discharge Diagnosis: epilepsy Condition on Discharge: Good Activity: Resume your previous activity Non-emergency contact: Primary Care Provider and Neurologist Call non-emergency contact if: you have any medication questions and your symptoms worsen Follow-up/Referrals: PCP,NO [Primary Care Provider] - Diet: Carb Consistent or DM2 Addtl Attending Provider Instructions: Mrs. Magallon, It was our pleasure to care for you at [facility] from 11/16/21 to 11/18/21. You initially presented to the ER with your after you experienced multiple tonic-clonic seizures. While in the hospital, you had an EEG which confirmed epileptic seizure activity. You were also seen by neurology. Your medication regimen has been adjusted as follow: 1. Increase your Onfi (clobazam) from Onfi 10mg once a day at night to ONFI 10mg BY MOUTH TWICE A DAY. A new prescription for the Onfi has been sent to your pharmacy, [facility] ([phone]), in [place]. Please pick it up as soon as you return home. IF YOU ARE UNABLE TO RETURN TO [place] WITHIN THE NEXT 3 DAYS (BY 11/21/21), PLEASE CALL OUR HOSPITAL, [facility], AT [phone] TO SPEAK WITH HOSPITALIST ON SERVICE IN ORDER TO GET A PRESCRIPTION FOR THE CLOBAZAM SENT TO A LOCAL PHARMACY. 2. Continue to take the lamotrigine (Lamictal) 300mg by mouth twice a day as well. 3. Continue your other home medications. You should follow up with your primary care doctor, neurologist, and epileptologist within 1 week. Return to the emergency department with any worsening of symptoms or persistent/recurrent seizures. Pending Studies at Discharge: No Stand-Alone Forms: My [facility], Smoking Cessation Medications and DC Order Prescriptions: New lamotrigine 100 mg Tablet 300 mg PO BID Qty: 180 RF: 0 clobazam [Onfi] 10 mg Tablet 1 dose PO BID Qty: 60 RF: 0 Continued metoprolol succinate 50 mg Tablet Extended Release 24 Hr 50 mg PO DAILY RF: 0 calcium carbonate [Calcium 600] 600 mg calcium (1,500 mg) Tablet 600 mg PO DAILY RF: 0 ascorbic acid (vitamin C) [Vitamin C] 500 mg Tablet 500 mg PO DAILY RF: 0 metformin 1,000 mg Tablet 1,000 mg PO BID RF: 0 vitamin B complex Tablet 1 tab PO DAILY RF: 0 montelukast [Singulair] 10 mg Tablet 10 mg PO HS RF: 0 pyridoxine (vitamin B6) [Vitamin B-6] 100 mg Tablet 100 mg PO DAILY RF: 0 lorazepam [Ativan] 1 mg Tablet 1 mg PO DIRECTED PRN (Reason: SEIZURES/ANXIETY) RF: 0 cholecalciferol (vitamin D3) [Vitamin D3] 25 mcg (1,000 unit) Capsule 25 mcg PO DAILY RF: 0 magnesium oxide 400 mg magnesium Tablet 400 mg PO DAILY RF: 0 Unknown Low Dose Arb 1 tab PO DAILY RF: 0 Unknown Statin 1 tab PO HS RF: 0 Discontinued lamotrigine [Lamictal] 200 mg Tablet 300 mg PO BID RF: 0 clobazam [Onfi] 10 mg Tablet 10 mg PO HS RF: 0 Discharge Orders: Discharge Order (Routine); Ordered 11/18/21 Ordered By: Anusha Campbell/Other Patient Handouts: Eating Out When You Have Diabetes, Exercise to Manage Your Blood Sugar, First Aid: Seizures, Partial Seizures: Know What to Do, Diabetes and High Blood Pressure Admission Data Admit Date/Time: 11/16/21 21:01 Attending Provider: Brianne Carvajal Admit Provider: Lexi Daly Primary Care Provider: PCP,[facility] Other Providers: Lexi Daly ; Harish Carrero Other Interventions: Discharge Summary Assessment (RN) Last Done: 11/18/21 13:14 Supervising Physician Co-Signing Physician Notes Resident Physician Supervision Note: I independently interviewed and examined the patient and verified the gan history and physical, reviewed labs and image studies and agree with resident Dr. Iniguez findings and care plan. Resident Activity Tracking Resident Involvement: Resident Care Provided Care Provided: Adult Hospital Medicine
--- NOTE | 2021-11-18 13:04 | Electrocardiogram Report ---
Test Reason : Blood Pressure : / mmHG Vent. Rate : 115 BPM Atrial Rate : 115 BPM P-R Int : 178 ms QRS Dur : 098 ms QT Int : 340 ms P-R-T Axes : 049 -19 052 degrees QTc Int : 470 ms Sinus tachycardia Possible Old Inferior infarct Possible Old Anterior infarct Abnormal ECG No previous ECGs available Confirmed by Sunny Serrano ([id number]) on 11/18/2021 1:04:18 PM Referred By: REFERRED SELF Confirmed By:Sunny Serrano
== END 2021-11-18 15:45 | disposition home or self-care (01) | DRG 101 ==
LOC: ED 17:32 → SUATTDRO 21:01 → EDINP 21:01 → 2S 11-17 18:42